=== PATIENT | male | born 2000 | race Hispanic/Latino ===

== ENCOUNTER 2021-02-22 19:08 | Emergency (ER) | payer SELFPAY ==
--- NOTE | 2021-02-22 20:19 | ER ---
Nurse's Notes [facility] Name: Jeffery Jarquin Age: 20 yrs Sex: Male : 2000 Arrival Date: 02/22/2021 Time: 19:13 Bed 25 Private MD: Diagnosis: Injury of conjunctiva and corneal abrasion without foreign body, right eye;Unspecified acute conjunctivitis, bilateral Presentation: 02/22 20:50 Chief complaint: Patient states: R eye pain x 6 hours, reports contact that became lp1 irritating, only able to get out half of contact; reports pain to right eye. Coronavirus screen: Client denies travel out of the [place] in the last 14 days. At this time, the client does not indicate any symptoms associated with coronavirus-19. Ebola Screen: No symptoms or risks identified at this time. Initial Sepsis Screen: Does the patient meet any 2 criteria? No. Patient's initial sepsis screen is negative. Does the patient have a suspected source of infection? No. Patient's initial sepsis screen is negative. Risk Assessment: Do you want to hurt yourself or someone else? Patient reports no desire to harm self or others. Onset of symptoms was February 22, 2021. 20:50 Method Of Arrival: Ambulatory lp1 20:50 Acuity: IWONA 3 lp1 Historical: - Allergies: 20:51 No Known Allergies; lp1 - Home Meds: 20:51 None [Active]; lp1 - PMHx: 20:51 None; lp1 - PSHx: 20:51 None; lp1 - Social history:: Smoking status: Patient denies any tobacco usage or history of. Screenin:51 Abuse screen: Denies threats or abuse. Denies injuries from another. Nutritional lp1 screening: No deficits noted. Tuberculosis screening: No symptoms or risk factors identified. Assessment: 21:00 General: Appears in no apparent distress. uncomfortable, well developed, well bb nourished, Behavior is cooperative. Pain: Complains of pain in left eye. Neuro: Level of Consciousness is awake, alert, obeys commands, Oriented to person, place, time, situation. Cardiovascular: Heart tones S1 S2 present Capillary refill < 3 seconds Patient's skin is warm and dry. Respiratory: Respiratory effort is even, unlabored, Respiratory pattern is regular. GI: No signs and/or symptoms were reported involving the gastrointestinal system. EENT: Eyes are tearing on left eye with scleral erythema. Musculoskeletal: Circulation, motion, and sensation intact. 23:35 Reassessment: Patient is alert, oriented x 3, equal unlabored respirations, skin bb warm/dry/pink. pt and parent verbalized understanding of and agrees to plan of care discharge instructions given pt ambulated with steady gait to exit accompanied by family. Vital Signs: 20:50 BP 146 / 119; Pulse 61; Resp 16; Temp 99.5(TE); Pulse Ox 99% on R/A; Weight 64.86 kg lp1 (R); Height 5 ft. 6 in. (167.64 cm); Pain 10/10; 23:36 Pulse 55; Resp 14 S; Temp 99.4(TE); Pulse Ox 98% on R/A; Pain 0/10; bb 20:50 Body Mass Index 23.08 (64.86 kg, 167.64 cm) lp1 ED Course: 19:13 Patient arrived in ED. ds1 19:59 Patient's name was called from ER lobby. No response. lp1 20:18 Patient's name was called from ER lobby. No response. Unable to locate patient. Will lp1 disposition as left without being seen by a provider. 20:51 Triage completed. lp1 20:52 Patient has correct armband on for positive identification. lp1 21:10 Baltazar Bustamante PA is PHCP. cp 21:10 Alex Kenney MD is Attending Physician. cp 23:12 Tory Gray MD is Referral Physician. cp 23:34 Judith Vivar, FLAKITO is Primary Nurse. bb Administered Medications: 21:30 Drug: Tetracaine Drops 0.5 % 1 drops Route: Ophthalmic; Site: right eye; iw 23:27 Drug: Hydrocodone-Acetaminophen (7.5 mg-325 mg) 1 tabs Route: PO; fu 23:27 Drug: Ibuprofen 800 mg Route: PO; fu 23:27 Drug: Gentamicin Drops 0.3 % 2 drops Route: Ophthalmic; Site: both eyes; fu Outcome: 20:18 Patient left the ED. lp1 23:13 Discharge ordered by . cp 23:36 Instructed on discharge instructions, follow up and referral plans. medication usage, bb Demonstrated understanding of instructions, follow-up care, medications, Prescriptions given X 1. 23:47 Patient left the ED. lp1 Signatures: Clarisa Watson ds1 Judith Vivar RN RN bb Twila Conde RN RN iw Pena, Laura, RN RN lp1 Baltazar Bustamante PA PA cp Umadhay, Felix RN RN fu
[2021-02-22] MEDS ORDERED: TETRACAINE HCL 0.5% 4ML OPTH ONE (21:22)
[2021-02-22] MEDS ORDERED: FLUORESCEIN SODIUM 1 MG/WRAP ONE ×2 (21:23→23:04)
--- NOTE | 2021-02-22 23:14 | EDPHYS ---
Physician Documentation [facility] Name: Jeffery Jarquin Age: 20 yrs Sex: Male : 2000 Arrival Date: 02/22/2021 Time: 19:13 Bed 25 Private MD: ED Physician Alex Kenney HPI: 02/22 21:35 This 20 yrs old Male presents to ER via Ambulatory with complaints of Eye cp Pain, Foreign Body In Eye. 21:35 The patient is experiencing pain, redness, foreign body sensation of right eye. Onset: cp The symptoms/episode began/occurred today. Duration: the symptoms are continuous. Patient wears glasses, wears soft contacts. 21:35 Presents to emergency department with complaints of pain to bilateral eyes. Patient cp reports pain started earlier today after wearing his soft contact lenses. Patient reports he was able to remove the contact lenses from both eyes but continues to have pain discomfort now redness to both eyes with the pain being worse in the right. Patient reports he feels like there is something in his right eye. Patient complains of blurry vision. Patient denies any injury to the eyes.. Historical: - Allergies: 20:51 No Known Allergies; lp1 - Home Meds: 20:51 None [Active]; lp1 - PMHx: 20:51 None; lp1 - PSHx: 20:51 None; lp1 - Social history:: Smoking status: Patient denies any tobacco usage or history of. ROS: 21:40 Eyes: Positive for pain, redness, of the left eye and right eye, foreign body sensation cp of right eye. 21:40 Constitutional: Negative for body aches, chills, fever. cp 21:40 Respiratory: Negative for cough, shortness of breath. 21:40 Skin: Negative for rash. 21:40 Neuro: Negative for altered mental status, headache, weakness. 21:40 All other systems are negative. Exam: 21:50 Constitutional: The patient appears in no acute distress, alert, awake, non-toxic, well cp developed, well nourished, uncomfortable. 21:50 Head/Face: Normocephalic, atraumatic. cp 21:50 Eyes: Periorbital structures: appear normal, Pupils: equal, round, and reactive to light and accomodation, Extraocular movements: intact throughout, Conjunctiva: injected, bilaterally, Corneas: abrasion, that is large, on the right, central cornea, foreign body, is not appreciated, a fluorescein strip employed to appreciate the findings, Sclera: no appreciated abnormality, Lids and lashes: appear normal, bilaterally, Visual bledsoe: are intact. 21:50 ENT: External ear(s): are unremarkable, Ear canal(s): are normal, clear, TM's: dullness, bilaterally, Nose: is normal, Mouth: Lips: moist, Oral mucosa: moist, Posterior pharynx: Airway: no evidence of obstruction, patent. 21:50 Neck: Lymph nodes: no appreciated lymphadenopathy. 21:50 Chest/axilla: Inspection: normal. 21:50 Cardiovascular: Rate: normal. 21:50 Respiratory: the patient does not display signs of respiratory distress, Respirations: normal. 21:50 Skin: no rash present. Vital Signs: 20:50 BP 146 / 119; Pulse 61; Resp 16; Temp 99.5(TE); Pulse Ox 99% on R/A; Weight 64.86 kg lp1 (R); Height 5 ft. 6 in. (167.64 cm); Pain 10/10; 23:36 Pulse 55; Resp 14 S; Temp 99.4(TE); Pulse Ox 98% on R/A; Pain 0/10; bb 20:50 Body Mass Index 23.08 (64.86 kg, 167.64 cm) lp1 MDM: 20:18 Medical screening is not applicable. lp1 21:25 Patient medically screened. cp 22:00 Differential diagnosis: Corneal abrasion of right eye. Corneal ulcer of right eye. cp Foreign body in right eye. Acute iritis of both eyes. Infectious conjunctivitis in both eyes. 23:13 Data reviewed: vital signs, nurses notes, and as a result, I will discharge patient. cp 23:13 Counseling: I had a detailed discussion with the patient and/or guardian regarding: the cp historical points, exam findings, and any diagnostic results supporting the discharge/admit diagnosis, the need for outpatient follow up, an opthalmologist, to return to the emergency department if symptoms worsen or persist or if there are any questions or concerns that arise at home. Response to treatment: the patient's symptoms have markedly improved after treatment, and as a result, I will discharge patient. 02/22 21:29 Order name: Eye Tray; Complete Time: 21:30 cp 02/22 21:29 Order name: Fluoresene Opth strip; Complete Time: 21:30 cp 02/22 21:29 Order name: Visual Acuity cp 02/22 21:29 Order name: Fluoresene Opth strip; Complete Time: 21:31 cp Administered Medications: 21:30 Drug: Tetracaine Drops 0.5 % 1 drops Route: Ophthalmic; Site: right eye; iw 23:27 Drug: Hydrocodone-Acetaminophen (7.5 mg-325 mg) 1 tabs Route: PO; fu 23:27 Drug: Ibuprofen 800 mg Route: PO; fu 23: Drug: Gentamicin Drops 0.3 % 2 drops Route: Ophthalmic; Site: both eyes; fu Disposition: 23:20 Chart complete. cp Disposition Summary: 02/22/21 23:13 Discharge Ordered Location: Home cp Problem: new cp Symptoms: have improved cp Condition: Stable cp Diagnosis - Injury of conjunctiva and corneal abrasion without foreign body, right eye cp - Unspecified acute conjunctivitis, bilateral cp Followup: cp - With: Tory Gray MD - When: 1 - 2 days - Reason: Recheck today's complaints Discharge Instructions: - Discharge Summary Sheet cp - Corneal Abrasion cp - Bacterial Conjunctivitis, Adult cp - How to Use Eye Drops and Eye Ointments cp Forms: - Medication Reconciliation Form cp - Thank You Letter cp - Antibiotic Education cp - Prescription Opioid Use cp Prescriptions: - Vigamox 0.5 % Ophthalmic Drops - instill 1 drop by OPHTHALMIC route every 8 hours for 7 days instill drops as cp directed into each eye; 10 milliliter; Refills: 0, Product Selection Permitted Addendum: 02/24/2021 04:34 Co-signature as Attending Physician, Alex Kenney MD. [facility] Signatures: Twila Conde RN RN Rosamaria Gordillo RN RN 1 Baltazar Bustamante PA PA cp Jairo Mistry RN RN fu Holmes, Maurice, MD MD [id number] Corrections: (The following items were deleted from the chart) 02/22 20:49 20:18 Before Triage lp1 zb 20:49 20:18 unknown lp1 zb
[2021-02-22] MEDS ORDERED: HYDROCODONE/APAP 7.5/325 MG TAB ONE (23:43)
[2021-02-22] MEDS ORDERED: IBUPROFEN 400 MG TAB ONE (23:43)
[2021-02-22] MEDS ORDERED: GENTAMICIN 0.3% OPTH DROP 5ML ONE (23:47)
[2021-02-22 23:53] VITALS: BP 146/119
[2021-02-22 23:57] VITALS: TEMP 99.4; O2SAT 98
== END 2021-02-22 23:47 | disposition home or self-care (01) ==
LOC: ER 19:08
DX: S05.01XA Injury of conjunctiva and corneal abrasion without foreign body, right eye, initial encounter (principal); H10.9 Unspecified conjunctivitis
CPT/HCPCS: 99283

== ENCOUNTER 2024-08-30 19:15 | Emergency (ER) | payer SELFPAY ==
[2024-08-30 20:11] LABS: Specific Gravity 1.018 (1.005-1.030); Sqamous Epithelial <5 /HPF (None Seen); Urine Bacteria None Seen /HPF (<20); Urine Bilirubin NEGATIVE (Negative); Urine Blood Trace (Negative); Urine Clarity Clear (Clear); Urine Color Yellow (Yellow); Urine Crystals Unidentified Few /HPF (None Seen); Urine Culture Reflex Order NOT NEEDED; Urine Glucose NEGATIVE (Negative); Urine Ketones TRACE (Negative); Urine Microscopic Reflex YN ORDER UMIC; Urine Nitrite NEGATIVE (Negative); Urine Protein NEGATIVE (Negative); Urine Urobilinogen Normal (Normal); Urine WBC <5 /HPF (<5); Urine pH 6.5 (5.0-7.0)
[2024-08-30 20:15] LABS: Absolute Basophils 0.1 K/uL (0-0.5); Absolute Lymphocytes (CBC) 1.4 K/uL (0.7-4.9); Absolute Monocytes 2.2 K/uL (0.1-1.3); Absolute Neutrophil 12.5 K/uL (1.8-8.0); Basophils % 0.3 % (0-1.3); Hematocrit 41.2 % (39.6-49.0); Hemoglobin 14.3 g/dL (13.6-17.9); Lymphocytes % 8.5 % (15.3-44.8); MCH 30.1 pg (27.0-35.0); MCHC 34.8 g/dL (32.0-36.0); MCV 86.6 fL (80-100); MPV 7.7 fL (7.6-11.3); Monocytes % 13.7 % (3.3-12.3); Neutrophils % 77.5 % (41.7-73.7); Platelets 332 thou/uL (152-406); RBC Red Blood Cell Count 4.76 M/uL (4.33-5.43); Red Cell Distribution Width 13.2 % (12.1-15.2)
--- NOTE | 2024-08-30 20:33 | RAD REPORT ---
EXAMINATION: ULTRASOUND DUPLEX OF SCROTUM AND TESTICLES CLINICAL INDICATION: Male, 24 years, Testicular Pain TECHNIQUE: Duplex scan of the scrotal contents was performed including real-time color and spectral D oppler ultrasonography with arterial inflow and venous outflow. COMPARISON: No prior exam. FINDINGS: RIGHT TESTICLE AND EPIDIDYMIS: The right testicle is normal in size, measuring 4.3 x 3.0 x 1.9 cm. Fairly well-circumscribed complex solid mass near the lower pole with some areas of calcification, me asuring 1.8 x 1.7 x 1.7 cm. Internal vascularity noted. Normal, homogeneous echotexture otherwise. The right epididymis is normal. Color Doppler flow in the right testicle is normal. Normal arterial and venous spectral Doppler waveforms are identified. No hydrocele. No varicocele. LEFT TESTICLE AND EPIDIDYMIS: The left testicle is normal in size, measuring 4.6 x 2.2 x 2.9 cm. Normal, homogeneous echotexture with no focal lesion seen. The left epididymis is normal. Color Doppler flow in the left testicle is normal. Normal arterial and venous spectral Doppler waveforms are identified. No hydrocele. No varicocele. INGUINAL CANAL: No hernia. ADDITIONAL FINDINGS: None. 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 No abnormalities of the epididymes or left testicle.
[2024-08-30 20:37] LABS: Albumin 3.3 g/dL (3.4-5.0); Albumin/Globulin Ratio 0.6 (1.1-1.8); Anion Gap 10.6 mEq/L (5.0-15.0); Bilirubin Total 1.3 mg/dL (0.2-1.0); Globulin 5.4 g/dL (2.3-3.5); Potassium 3.6 mEq/L (3.5-5.1); Protein, Total 8.7 g/dL (6.4-8.2)
[2024-08-30] MEDS ORDERED: MORPHINE 4 MG/ML SYR ONE (21:06)
[2024-08-30] MEDS ORDERED: NA CHLORIDE 0.9% 1,000 ML ONE (21:06)
[2024-08-30] MEDS ORDERED: ONDANSETRON 4 MG/2 ML VIAL ONE (21:06)
[2024-08-30] MEDS ORDERED: KETOROLAC 30 MG/ML INJ ONE (21:06)
--- NOTE | 2024-08-30 21:13 | RAD REPORT ---
EXAMINATION: CT Abdomen Pelvis W Contrast CLINICAL INDICATION: Male, 24 years old. Abd pain;RLQ pain TECHNIQUE: CT abdomen and pelvis was performed, after the administration of IV contrast, as per [facility] protocol. Axial, sagittal and coronal reconstructions were obtained. One or more of the following dose reduction techniques were used: Automated exposure control, adjustment of the mA and k V according to patient size, and iterative reconstruction. Unless otherwise specified, incidental findings do not require dedicated imaging follow-up. COMPARISON: No prior exam. FINDINGS: LOWER CHEST: The visualized lung bases are clear. LIVER: Normal in size and contour. No focal lesion. BILIARY SYSTEM: No suspicious abnormalities. SPLEEN: Normal size. No focal lesion. PANCREAS: No mass, ductal dilation, or carlos-pancreatic fluid. ADRENALS: Normal; no mass. KIDNEYS: Normal size and contour. No hydronephrosis. URINARY BLADDER: Unremarkable. GASTROINTESTINAL TRACT: No evidence of free air, significant intra-abdominal free fluid, bowel obstru ction or abscess. APPENDIX: Normal appendix. 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 Largest on the right is precaval, present further caudally, juan josé uring 4.7 x 4.3 cm in greatest axial dimensions. Nonlocalized edema within the retroperitoneum extending along the right pelvic sidewall, may relate to obstruction of the hepatic trunks. Posterior mediastinal lymphadenopathy with the largest node in the right para-aortic region measuring 2.4 x 1.8 cm. MUSCULOSKELETAL: No acute or suspicious osseous abnormality. ADDITIONAL FINDINGS: None. IMPRESSION: Extensive lymphadenopathy in the retroperitoneum and posterior mediastinum, concerning for metastatic disease, given the findings of the right testicular mass on scrotal ultrasound performed concomitantly.
--- NOTE | 2024-08-30 23:16 | EDPHYS ---
Physician Documentation [facility] Name: Jeffery Jarquin Age: 24 yrs Sex: Male : 2000 Arrival Date: 08/30/2024 Time: 19:15 Bed 6 Private MD: ED Physician Edy Drake HPI: 08/30 23:15 This 24 yrs old Male presents to ER via Ambulatory with complaints of Pelvic dr5 Pain, LUMP ON RT TESTICLE. 23:15 Onset: The symptoms/episode began/occurred 1 month(s) ago. Patient is a 24-year-old dr5 male with no past medical history coming in with mass to right testicle that he noticed 1 month ago. Patient reports that he went to a doctor today and was referred to ER for ultrasound for further management. Patient denies fever, nausea, vomiting, diarrhea, chest pain, shortness of breath.. Historical: - Allergies: 19:27 No Known Allergies; bm8 - Home Meds: 19:27 None [Active]; bm8 - PMHx: 19:27 None; bm8 - PSHx: 19:27 None; bm8 - Immunization history:: Adult Immunizations up to date. - Infectious Disease History:: Denies. - Social history:: Smoking status: Patient denies any tobacco usage or history of. ROS: 23:15 Constitutional: as per hpi dr5 Exam: 23:15 Constitutional: This is a well developed, well nourished patient who is awake, alert, dr5 and in no acute distress. Head/Face: Normocephalic, atraumatic. Eyes: Pupils equal round and reactive to light, extra-ocular motions intact. Lids and lashes normal. Conjunctiva and sclera are non-icteric and not injected. Cornea within normal limits. Periorbital areas with no swelling, redness, or edema. Neck: Trachea midline, no thyromegaly or masses palpated, and no cervical lymphadenopathy. Supple, full range of motion without nuchal rigidity, or vertebral point tenderness. No Meningismus. Chest/axilla: Normal chest wall appearance and motion. Nontender with no deformity. No lesions are appreciated. Cardiovascular: Regular rate and rhythm with a normal S1 and S2. Normal PMI, no JVD. No pulse deficits. Respiratory: Lungs have equal breath sounds bilaterally, clear to auscultation. No rales, rhonchi or wheezes noted. No increased work of breathing, no retractions or nasal flaring. Back: No spinal tenderness. No costovertebral tenderness. Full range of motion. Skin: Warm, dry with normal turgor. Normal color with no rashes, no lesions, and no evidence of cellulitis. MS/ Extremity: Pulses equal, no cyanosis. Neurovascular intact. Full, normal range of motion. Neuro: Awake and alert, GCS 15, oriented to person, place, time, and situation. Cranial nerves II-XII grossly intact. Motor strength 5/5 in all extremities. Sensory grossly intact. Cerebellar exam normal. Normal gait. 23:15 : CVA tenderness, is absent, Male external genitalia: Patient is not circumisioned. cremasteric reflex present right, present left, lesion, painful, tenderness, of the right testicle is noted, that is moderate, Mass noted to right testicle at the lower area. Tender to palpation., Bladder: Rectal exam: Sexual behavior: FLAKITO Cordova at bedside during exam, Vital Signs: 19:25 BP 141 / 87; Pulse 116; Resp 18; Temp 99; Pulse Ox 100% ; Weight 68.04 kg; Height 5 ft. bm8 6 in. ; Pain 3/10; 21:31 BP 143 / 77; Pulse 112; Resp 17; Pulse Ox 100% ; cp4 23:07 BP 140 / 70; Pulse 114; Resp 17; Pulse Ox 99% ; cp4 23:20 BP 128 / 76; Pulse 99; Resp 17; Temp 99; Pulse Ox 100% ; Pain 3/10; 8 08/31 00:33 BP 132 / 86; Pulse 98; Resp 8; Temp 99; Pulse Ox 99% ; Pain 3/10; 8 08/30 19:25 Body Mass Index 24.21 (68.04 kg, 167.64 cm) 8 08/30 19:25 Pain Scale: Adult bm8 23:20 Pain Scale: Adult bm8 08/31 00:33 Pain Scale: Adult bm8 Janes Coma Score: 08/30 23:20 Eye Response: spontaneous(4). Motor Response: obeys commands(6). Verbal Response: bm8 oriented(5). Total: 15. 08/31 00:33 Eye Response: spontaneous(4). Motor Response: obeys commands(6). Verbal Response: bm8 oriented(5). Total: 15. MDM: 08/30 19:27 Medical Screening Exam initiated dr5 23:15 Differential diagnosis: viral Infection, Testicular torsion, testicular cancer, dr5 appendicitis. Data reviewed: vital signs, nurses notes, lab test result(s), radiologic studies, CT scan. Consideration of Admission/Observation Patient was admitted/placed on observation. Management of patient was discussed with the following: Hospitalist: Dr. Lindsay at [facility]. Chemical Worker: Dr. Pompa (Urologist). Care significantly affected by the following Social Determinants of Health: Poor access to healthcare and/or lack of insurance, Poor access to transportation, Unemployment, Problems related to employment. Counseling: I had a detailed discussion with the patient and/or guardian regarding the historical points, exam findings, and any diagnostic results supporting the discharge/admit diagnosis, the presence of at least one elevated blood pressure reading (>120/80) during this emergency department visit, lab results, radiology results, the need to transfer to another facility, for higher level of care, [facility] does not immediately have the required specialist, Do not have immediate urology service.. Medication response: morphine markedly relieved the patient's pain. Symptoms have improved, Toradol markedly relieved the patient's pain. Response to treatment: the patient's symptoms have markedly improved after treatment. ED course: Given the patient ultrasound results and CT scan will transfer to [facility] for urology service and concerns for testicular cancer with possible metastasis. Explained all results and scans to patient. Patient is agreeable to transfer.. 08/30 19:19 Order name: CBC with Diff; Complete Time: 20:47 dr5 08/30 19:19 Order name: CMP; Complete Time: 20:47 dr5 08/30 19:27 Order name: Urinalysis w/ reflexes; Complete Time: 20:15 dr5 08/30 19:19 Order name: US Scrotum Testicles; Complete Time: 20:47 dr5 08/30 19:27 Order name: CT Abd/Pelvis - IV Contrast Only; Complete Time: 21:17 dr5 Administered Medications: 21:13 Drug: Ketorolac IVP 15 mg IVP once Route: IVP; Site: right antecubital; cm10 21:53 Follow up: Response: No adverse reaction cm10 21:13 Drug: morphine IVP or IV 4 mg IVP once over 4 mins Route: IVP; Infused Over: 4 mins; cm10 Site: right antecubital; 21:53 Follow up: Response: No adverse reaction cm10 21:13 Drug: Ondansetron IVP 4 mg IVP once; over 2 minutes Route: IVP; Site: right antecubital;cm10 21:53 Follow up: Response: No adverse reaction cm10 21:13 Drug: NS 0.9% IV 1000 ml IV at 1000 ml once; to be given as a bolus over 60 minutes cm10 Route: IV; Rate: 1000 ml; Site: right antecubital; 21:52 Follow up: Response: No adverse reaction; IV Status: Completed infusion; IV Intake: cm10 1000ml Disposition: 08/31 08:58 Co-signature as Attending Physician, Edy Drake MD I reviewed the patient's care rt provided by the Advanced Practice Provider and agree with the diagnosis and treatment plan. Disposition Summary: 08/30/24 23:15 Transfer Ordered Notes: Transfer Location: [facility] dr5 Reason: Higher level of care dr5 Condition: Stable dr5 Problem: new dr5 Symptoms: are unchanged dr5 Accepting Physician: Dr. Lindsay - Hospitalist(08/31/24 00:35) bm8 Diagnosis - Right testicular pain dr5 Forms: - Medication Reconciliation Form dr5 - SBAR form dr5 Signatures: Dispatcher [employer] EDEdy Moreland MD MD rt Tasha Gallegos RN RN cm10 John Vazquez RN RN bm8 Kwame Guerrero, PEDIATRIC NURSE-C PEDIATRIC NURSE-Cdr5 Corrections: (The following items were deleted from the chart) 08/30 19: 19:27 Abdomen Pelvis W Con+CT.RAD.BRZ ordered. EDMS EDMS 19:27 Urinalysis+U.LAB.BRZ ordered. EDMS EDMS 08/31 00:35 08/30 23:15 Dr. Lindsay - Hospitalist dr5 bm8
--- NOTE | 2024-08-30 23:16 | ER ---
Nurse's Notes [facility] Name: Jeffery Jarquin Age: 24 yrs Sex: Male : 2000 Arrival Date: 08/30/2024 Time: 19:15 Bed 6 Private MD: Diagnosis: Right testicular pain Presentation: 08/30 19:25 Chief complaint: Patient states: pt reports lump on right testicle hip pain and bladder bm8 pain that started five days ago. Coronavirus screen: At this time, the client does not indicate any symptoms associated with coronavirus-19. Ebola Screen: No symptoms or risks identified at this time. Initial Sepsis Screen: Does the patient meet any 2 criteria? No. Patient's initial sepsis screen is negative. Does the patient have a suspected source of infection? No. Patient's initial sepsis screen is negative. Risk Assessment: Do you want to hurt yourself or someone else? Patient reports no desire to harm self or others. Onset of symptoms was August 25, 2024. 19:25 Method Of Arrival: Ambulatory 8 19:25 Acuity: IWONA 3 bm8 Triage Assessment: 19:27 General: Appears in no apparent distress. comfortable, Behavior is cooperative, bm8 appropriate for age, anxious. Pain: Complains of pain in groin, right femoral area, suprapubic area, right inguinal area and right iliac crest Pain currently is 3 out of 10 on a pain scale. EENT: No deficits noted. No signs and/or symptoms were reported regarding the EENT system. Neuro: No deficits noted. Level of Consciousness is awake, alert, obeys commands, Oriented to person, place, time, situation, Appropriate for age. Cardiovascular: No deficits noted. Capillary refill < 3 seconds in bilateral fingers. Respiratory: Airway is patent Respiratory effort is even, unlabored, Respiratory pattern is regular, symmetrical. GI: No signs and/or symptoms were reported involving the gastrointestinal system. : Reports pain testicle, bladder and right hip. Derm: No signs and/or symptoms reported regarding the dermatologic system. Musculoskeletal: Reports pain in right inguinal area and right iliac crest. Historical: - Allergies: 19:27 No Known Allergies; bm8 - Home Meds: 19:27 None [Active]; bm8 - PMHx: 19:27 None; bm8 - PSHx: 19:27 None; bm8 - Immunization history:: Adult Immunizations up to date. - Infectious Disease History:: Denies. - Social history:: Smoking status: Patient denies any tobacco usage or history of. Screenin:56 [facility] ED Fall Risk Assessment (Adult) History of falling in the last 3 months, cm10 including since admission No falls in past 3 months (0 pts) Confusion or Disorientation No (0 pts) Intoxicated or Sedated No (0 pts) Impaired Gait No (0 pts) Mobility Assist Device Used No (0 pt) Altered Elimination No (0 pt) Score/Fall Risk Level 0 - 2 = Low Risk Oriented to surroundings, Educated pt \T\ family on fall prevention, incl call for assistance when getting out of bed, Hourly rounding (assess needs \T\ fall precautionary measures) done. Abuse screen: Denies threats or abuse. Denies injuries from another. Nutritional screening: No deficits noted. Tuberculosis screening: No symptoms or risk factors identified. Assessment: 21:00 General: Appears in no apparent distress. comfortable, Behavior is calm, cooperative. cm10 Pain: Complains of pain in right testicle Pain radiates to right lower quadrant Pain currently is 4 out of 10 on a pain scale. Neuro: No deficits noted. Level of Consciousness is awake, alert, obeys commands, Oriented to person, place, time, situation, Appropriate for age. Respiratory: No deficits noted. Airway is patent Respiratory effort is even, unlabored, Respiratory pattern is regular, symmetrical. : Reports pain in right in suprapubic area lower quadrant(s) testicle, since 4-5 days ago Lump on right testicle onset 1 month ago. 23:20 Reassessment: Patient appears in no apparent distress at this time. Patient and/or bm8 family updated on plan of care and expected duration. Pain level reassessed. Patient is alert, oriented x 3, equal unlabored respirations, skin warm/dry/pink. Patient states feeling better. Pain: Complains of pain in right testicle Pain currently is 3 out of 10 on a pain scale. 23:22 Reassessment: ATTEMPTED TO CALL REPORT AND WAS ASKED TO CALL BACK IN 10 MINS BECAUSE 8 NURSE WAS OFF THE FLOOR AT THIS TIME. 23:45 Reassessment: REPORT TO FLAKITO FELIZ AT [facility]. bm8 Vital Signs: 19:25 BP 141 / 87; Pulse 116; Resp 18; Temp 99; Pulse Ox 100% ; Weight 68.04 kg; Height 5 ft. bm8 6 in. ; Pain 3/10; 21:31 BP 143 / 77; Pulse 112; Resp 17; Pulse Ox 100% ; cp4 23:07 BP 140 / 70; Pulse 114; Resp 17; Pulse Ox 99% ; cp4 23:20 BP 128 / 76; Pulse 99; Resp 17; Temp 99; Pulse Ox 100% ; Pain 3/10; bm8 08/31 00:33 BP 132 / 86; Pulse 98; Resp 8; Temp 99; Pulse Ox 99% ; Pain 3/10; bm8 08/30 19:25 Body Mass Index 24.21 (68.04 kg, 167.64 cm) 8 08/30 19:25 Pain Scale: Adult bm8 23:20 Pain Scale: Adult bm8 08/31 00:33 Pain Scale: Adult bm8 Janes Coma Score: 08/30 23:20 Eye Response: spontaneous(4). Motor Response: obeys commands(6). Verbal Response: bm8 oriented(5). Total: 15. 08/31 00:33 Eye Response: spontaneous(4). Motor Response: obeys commands(6). Verbal Response: bm8 oriented(5). Total: 15. ED Course: 08/30 19:18 Patient arrived in ED. jj6 19:19 Kwame Guerre[facility] F[facility]-C [facility]. dr5 19:19 Edy Drake MD is Attending Physician. dr5 19:27 Triage completed. bm8 19:27 Arm band placed on left wrist. bm8 19:29 Tasha Gallegos, RN is Primary Nurse. cm10 20:03 US Scrotum Testicles In Process Unspecified. EDMS 20:04 Urinalysis w/ reflexes Sent. cp4 20:04 Urine collected: clean catch specimen, joaquin colored. cp4 20:09 CMP Sent. mm11 20:09 CBC with Diff Sent. mm11 20:10 Inserted saline lock: 22 gauge in right antecubital area, using aseptic technique. mm11 Blood collected. Flushed with 10 mL NS. 20:15 CT Abd/Pelvis - IV Contrast Only In Process Unspecified. EDMS 21:45 Assisted provider with: Testicular Exam. cm10 21:56 Patient has correct armband on for positive identification. Placed in gown. Bed in low cm10 position. Call light in reach. Side rails up X2. Provided Education on: ER process and procedures.. 22:13 Report given to FLAKITO Lopez. cm10 23:19 John Vazquez, RN is Primary Nurse. bm8 23:20 Door closed. Noise minimized. Warm blanket given. Pillow given. Verbal reassurance bm8 given. Head of bed elevated. 23:20 Patient maintains SpO2 saturation greater than 95% on room air. bm8 08/31 00:33 Patient transferred, IV remains in place. bm8 Administered Medications: 08/30 21:13 Drug: Ketorolac IVP 15 mg IVP once Route: IVP; Site: right antecubital; cm10 21:53 Follow up: Response: No adverse reaction cm10 21:13 Drug: morphine IVP or IV 4 mg IVP once over 4 mins Route: IVP; Infused Over: 4 mins; cm10 Site: right antecubital; 21:53 Follow up: Response: No adverse reaction cm10 21:13 Drug: Ondansetron IVP 4 mg IVP once; over 2 minutes Route: IVP; Site: right antecubital;cm10 21:53 Follow up: Response: No adverse reaction cm10 21:13 Drug: NS 0.9% IV 1000 ml IV at 1000 ml once; to be given as a bolus over 60 minutes cm10 Route: IV; Rate: 1000 ml; Site: right antecubital; 21:52 Follow up: Response: No adverse reaction; IV Status: Completed infusion; IV Intake: cm10 1000ml Medication: 21:56 VIS not applicable for this client. cm10 Intake: 21:52 IV: 1000ml; Total: 1000ml. cm10 Outcome: 23:15 ER care complete, transfer ordered by . dr5 08/31 00:33 [facility]red by ground [facility] [place] [facility] [facility] [place] Condition: stable Instructed on follow up and referral plans. the need for transfer, safety practices, Demonstrated understanding of instructions, follow-up care, 00:35 Patient left the ED. bm8 Signatures: Dispatcher [employer] EDMS Sydni [id number] Tasha Gallegos RN RN cm10 Ceci aMx cp4 John Vazquez, RN RN bm8 Kwame Guerrero, LIQUOR BRIDGE OPERATOR HELPER-C LIQUOR BRIDGE OPERATOR HELPER-Cdr5 farida mueller mm11
[2024-08-31 12:46] VITALS: TEMP 99
[2024-08-31 13:02] VITALS: BP 132/86; O2SAT 99
== END 2024-08-31 00:35 | disposition short-term general hospital (02) ==
LOC: ER 19:15
DX: N50.811 Right testicular pain (principal)
CPT/HCPCS: 36415; 74177; 76870; 80053; 81001; 85025; 96361; 96374; 96375; 99285; J2405; J7030; Q9967

== ENCOUNTER 2024-09-08 14:23 | Emergency (ER) | payer SELFPAY ==
--- NOTE | 2024-09-08 14:52 | ER ---
Nurse's Notes [facility] Name: Jeffery Jarquin Age: 24 yrs Sex: Male : 2000 Arrival Date: 09/08/2024 Time: 14:23 Bed 20 Private MD: Diagnosis: Encounter for wound evaluation Presentation: 09/08 14:34 Chief complaint: Patient states: Here to have wound checked to right groin. Pt had cm10 right testicle removed last week and the wound opened up. Pt reports having slight bleeding to the area. Coronavirus screen: Client denies travel out of the [place] in the last 14 days. Ebola Screen: Patient denies travel to an Ebola-affected area in the 21 days before illness onset. Initial Sepsis Screen: Does the patient meet any 2 criteria? No. Patient's initial sepsis screen is negative. Does the patient have a suspected source of infection? No. Patient's initial sepsis screen is negative. Risk Assessment: Do you want to hurt yourself or someone else? Patient reports no desire to harm self or others. Onset of symptoms was September 08, 2024. 14:34 Method Of Arrival: Ambulatory cm10 14:34 Acuity: IWONA 4 cm10 Triage Assessment: 14:38 General: Appears in no apparent distress. uncomfortable, Behavior is calm, cooperative. cm10 Pain: Complains of pain in back and pelvis Pain currently is 7 out of 10 on a pain scale. Neuro: No deficits noted. Level of Consciousness is awake, alert, obeys commands, Oriented to person, place, time, situation, Appropriate for age. Respiratory: No deficits noted. Airway is patent Respiratory effort is even, unlabored, Respiratory pattern is regular, symmetrical. Derm: Wound noted right lower quadrant Wound is Surgical wound. Historical: - Allergies: 14:37 No Known Allergies; cm10 - PMHx: 14:37 Testicular Cancer; cm10 - PSHx: 14:37 Right testicle removed; cm10 - Immunization history:: Adult Immunizations up to date. - Infectious Disease History:: Denies. - Social history:: Smoking status: Patient denies any tobacco usage or history of. Patient/guardian denies using alcohol, street drugs. Screenin:22 [facility] ED Fall Risk Assessment (Adult) History of falling in the last 3 months, me1 including since admission No falls in past 3 months (0 pts) Confusion or Disorientation No (0 pts) Intoxicated or Sedated No (0 pts) Impaired Gait No (0 pts) Mobility Assist Device Used No (0 pt) Altered Elimination No (0 pt) Score/Fall Risk Level 0 - 2 = Low Risk Maintained a safe environment, Provided non-skid footwear, Hourly rounding (assess needs \T\ fall precautionary measures) done. Abuse screen: Denies threats or abuse. Nutritional screening: No deficits noted. Tuberculosis screening: No symptoms or risk factors identified. Assessment: 15:22 General: Appears in no apparent distress. well groomed, well developed, well nourished, me1 Behavior is calm, cooperative, appropriate for age, Reports Here to have wound checked to right groin. Pt had right testicle removed last week and the wound opened up. Pt reports having slight bleeding to the area. Pain: Complains of pain in abdomen and right lower quadrant and pelvis and back Pain does not radiate. Pain currently is 8 out of 10 on a pain scale. Quality of pain is described as aching, Pain began gradually, Is continuous. Neuro: Level of Consciousness is awake, alert, obeys commands, Oriented to person, place, time, situation, Appropriate for age. Cardiovascular: Patient's skin is warm and dry. Respiratory: Airway is patent Respiratory effort is even, unlabored, Respiratory pattern is regular, symmetrical. GI: No signs and/or symptoms were reported involving the gastrointestinal system. : Reports pain in right lower quadrant(s) in lower back. EENT: No signs and/or symptoms were reported regarding the EENT system. Derm: Skin is healthy with good turgor, Skin is pink, warm \T\ dry. Wound noted right lower quadrant Wound is surgical incision with glue. Musculoskeletal: No signs and/or symptoms reported regarding the musculoskeletal system. Vital Signs: 14:34 BP 144 / 88; Pulse 85; Resp 15; Temp 97.9(O); Pulse Ox 100% on R/A; Weight 66.22 kg; cm10 Height 5 ft. 6 in. ; Pain 7/10; 15:00 BP 114 / 69; Pulse 56; Resp 15; Pulse Ox 99% ; me1 15:25 Pain 5/10; me1 15:25 Pain 5/10; me1 14:34 Body Mass Index 23.56 (66.22 kg, 167.64 cm) cm10 14:34 Pain Scale: Adult cm10 15:25 Pain Scale: Adult me1 15:25 Pain Scale: Adult me1 ED Course: 14:26 Patient arrived in ED. mr 14:27 Yossi Kim MD is Attending Physician. ec2 14:37 Triage completed. cm10 14:38 Arm band placed on left wrist. Patient placed in an exam room, on a stretcher. cm10 14:50 Ashanti Larson, FLAKITO is Primary Nurse. me1 15:22 Patient has correct armband on for positive identification. Bed in low position. Call me1 light in reach. Side rails up X 1. Provided Education on: POC. Verbalized understanding.. Client placed on continuous cardiac and pulse oximetry monitoring. NIBP monitoring applied. Pulse ox on. NIBP on. 15:22 No provider procedures requiring assistance completed. Patient did not have IV access me1 during this emergency room visit. 15:25 Wound care: to surgical incision located on right lower quadrant was cleaned with va1 Hibiclens, dressed with non adherent, gauze and tape, Patient tolerated well. Administered Medications: 15:16 Drug: morphine IM 4 mg IM once Route: IM; Site: right deltoid; me1 15:25 Follow up: Pain 5/10 Adult; Response: No adverse reaction; Pain is decreased me1 15:16 Drug: Ketorolac IM 30 mg IM once Route: IM; Site: left deltoid; me1 15:25 Follow up: Pain 5/10 Adult; Response: No adverse reaction; Pain is decreased me1 Medication: 15:22 VIS not applicable for this client. me1 Outcome: 14:51 Discharge ordered by . ec2 15:33 Discharged to home ambulatory, with friend, me1 15:33 Condition: stable 15:33 Discharge instructions given to patient, Instructed on discharge instructions, follow up and referral plans. medication usage, Demonstrated understanding of instructions, follow-up care, medications, Prescriptions given X 1, 15:34 Patient left the ED. me1 Signatures: Kimberly Ruiz, Reg Reg mr GallegosDeonTasha, RN RN cm10 Ashanti Larson, FLAKITO RN me1 Yossi Kim MD MD ec2 Corrections: (The following items were deleted from the chart) 15:22 14:34 Chief complaint: Patient states: Here to have wound checked to right groin. Pt me1 had right testicle removed last week and the wound opened up. Pt reports having slight bleeding to the area. cm10
--- NOTE | 2024-09-08 14:52 | EDPHYS ---
Physician Documentation [facility] Name: Jeffery Jarquin Age: 24 yrs Sex: Male : 2000 Arrival Date: 09/08/2024 Time: 14:23 Bed 20 Private MD: ED Physician Yossi Kim HPI: 09/08 14:38 This 24 yrs old Male presents to ER via Ambulatory with complaints of Wound ec2 Check. 14:38 Patient arrives today for evaluation of his groin wound. States that he recently was ec2 diagnosed with testicular cancer, had a recent surgery. States that he is having scant amount of bleeding from the wound and wanted to be evaluated. Also reports he has some general abdominal pain from his metastatic lesions. States he had recent imaging.. Historical: - Allergies: 14:37 No Known Allergies; cm10 - PMHx: 14:37 Testicular Cancer; cm10 - PSHx: 14:37 Right testicle removed; cm10 - Immunization history:: Adult Immunizations up to date. - Infectious Disease History:: Denies. - Social history:: Smoking status: Patient denies any tobacco usage or history of. Patient/guardian denies using alcohol, street drugs. ROS: 14:40 Constitutional: as per hpi ec2 Exam: 14:40 Constitutional: GEN: NAD Head: atraumatic Eyes: EOMI Ears: External ears are ec2 normal. CV: regular rate LUNGS: no respiratory distress ABD: non-distended SKIN: Right groin with well-healing incision scant amount of blood noted on the most medial portion, no significant dehiscence appreciated, no surrounding erythema, no discharge noted. MSK: no evidence of trauma Vital Signs: 14:34 BP 144 / 88; Pulse 85; Resp 15; Temp 97.9(O); Pulse Ox 100% on R/A; Weight 66.22 kg; cm10 Height 5 ft. 6 in. ; Pain 7/10; 15:00 BP 114 / 69; Pulse 56; Resp 15; Pulse Ox 99% ; me1 15:25 Pain 5/10; me1 15:25 Pain 5/10; me1 14:34 Body Mass Index 23.56 (66.22 kg, 167.64 cm) cm10 14:34 Pain Scale: Adult cm10 15:25 Pain Scale: Adult me1 15:25 Pain Scale: Adult me1 MDM: 14:40 Data reviewed: vital signs, nurses notes. ED course: Patient arrives today for bleeding ec2 from his wound. Examination yields skin findings as above. Will redress, does not need reclosure given very scant amount of bleeding and no dehiscence or significant opening of the wound, no evidence of cellulitis. Differential included dehiscence, cellulitis, abscess. Will also treat the patient's pain.. 14:41 Medical Screening Exam initiated ec2 09/08 14:37 Order name: Wound Care: non-adherent, gauze, tape; Complete Time: 15:21 ec2 Administered Medications: 15:16 Drug: morphine IM 4 mg IM once Route: IM; Site: right deltoid; me1 15:25 Follow up: Pain 5/10 Adult; Response: No adverse reaction; Pain is decreased me1 15:16 Drug: Ketorolac IM 30 mg IM once Route: IM; Site: left deltoid; me1 15:25 Follow up: Pain 5/10 Adult; Response: No adverse reaction; Pain is decreased me1 Disposition Summary: 09/08/24 14:51 Discharge Ordered Notes: Location: Home ec2 Condition: Stable ec2 Diagnosis - Encounter for wound evaluation ec2 Followup: ec2 - With: Private Physician - When: - Reason: Re-evaluation by your physician Discharge Instructions: - Discharge Summary Sheet ec2 - Wound Dehiscence, [id number] ec2 Forms: - Medication Reconciliation Form ec2 - Antibiotic Education ec2 - Prescription Opioid Use ec2 - Patient Portal Instructions ec2 - Leadership Thank You Letter ec2 Prescriptions: - acetaminophen-codeine 300-30 mg Oral tablet - take 1 tablet ORAL route every 12 hours; 15 tablet; Refills: 0, Product ec2 Selection Permitted Signatures: Tasha Gallegos RN RN cm10 Ashanti Larson RN RN me1 Yossi Kim MD MD ec2
[2024-09-08] MEDS ORDERED: KETOROLAC 30 MG/ML INJ ONE (15:11)
[2024-09-08] MEDS ORDERED: MORPHINE 4 MG/ML SYR ONE (15:11)
[2024-09-08 15:40] VITALS: TEMP 97.9
[2024-09-08 15:41] VITALS: BP 114/69; O2SAT 99
== END 2024-09-08 15:34 | disposition home or self-care (01) ==
LOC: ER 14:23
DX: Z48.01 Encounter for change or removal of surgical wound dressing (principal)
CPT/HCPCS: 96372; 99284

== ENCOUNTER 2024-09-09 01:26 | Emergency (ER) | payer SELFPAY ==
--- NOTE | 2024-09-09 02:09 | EDPHYS ---
Physician Documentation [facility] Name: Jeffery Jarquin Age: 24 yrs Sex: Male : 2000 Arrival Date: 09/09/2024 Time: 01:26 Bed 18 Private MD: ED Physician Edy Drake HPI: 09/09 03:55 This 24 yrs old Male presents to ER via Ambulatory with complaints of Post rt Surgical Pain. 03:55 Patient had a recent diagnosis of testicular cancer, with his right testicle removed. rt He was found that the cancer had spread into the lymph nodes of the abdomen. Reports of pain in that region. Was seen in the ED earlier, was given pain medications with improvement, subsequent sent home on Tylenol 3. Patient states that he has been oxycodone, ever, he did have mood changes associated with that he does not wish to continue that medicine. Denies other acute complaints at this time, symptoms are moderate in severity, no other aggravating alleviating factors. Historical: - Allergies: 02:02 No Known Allergies; br2 - PMHx: 02:02 testicular cancer; br2 - PSHx: 02:02 right testicle removed; br2 - Immunization history:: Adult Immunizations up to date. - Infectious Disease History:: Denies. - Social history:: Smoking status: Patient denies any tobacco usage or history of. Patient uses alcohol, but reports only rare drinking. - Family history:: not pertinent. ROS: 03:55 Cardiovascular: Negative for chest pain, palpitations, and edema, Respiratory: Negative rt for shortness of breath, cough, wheezing, and pleuritic chest pain, MS/Extremity: Negative for injury and deformity, Skin: Negative for injury, rash, and discoloration, Neuro: Negative for headache, weakness, numbness, tingling, and seizure, 03:55 Constitutional: Positive for body aches, Negative for fever, 03:55 Abdomen/GI: Positive for abdominal pain, Negative for nausea and vomiting, Exam: 03:55 Constitutional: This is a well developed, well nourished patient who is awake, alert, rt and in no acute distress. Head/Face: Normocephalic, atraumatic. Chest/axilla: Normal chest wall appearance and motion. Nontender with no deformity. No lesions are appreciated. Cardiovascular: Regular rate and rhythm with a normal S1 and S2. No gallops, murmurs, or rubs. Normal PMI, no JVD. No pulse deficits. Respiratory: Lungs have equal breath sounds bilaterally, clear to auscultation and percussion. No rales, rhonchi or wheezes noted. No increased work of breathing, no retractions or nasal flaring. Abdomen/GI: Soft, non-tender, with normal bowel sounds. No distension or tympany. No guarding or rebound. No evidence of tenderness throughout. Vital Signs: 01:54 BP 156 / 88; Pulse 77; Resp 18; Temp 97.2; Pulse Ox 100% on R/A; Weight 66.68 kg; br2 Height 5 ft. 6 in. ; Pain 8/10; 02:00 BP 134 / 70; Pulse 67; Resp 16; Pulse Ox 100% on R/A; al5 02:30 BP 116 / 54; Pulse 60; Resp 17; Pulse Ox 100% on R/A; al5 02:56 BP 133 / 67; Pulse 74; Resp 16; Pulse Ox 100% on R/A; al5 03:18 BP 123 / 72; Pulse 70; Resp 15; Pulse Ox 100% on R/A; al5 01:54 Body Mass Index 23.73 (66.68 kg, 167.64 cm) br2 01:54 Pain Scale: Adult br2 MDM: 01:56 Medical Screening Exam initiated rt 03:55 Differential Diagnosis Cancer related pain, metastatic disease. Data reviewed: vital rt signs, nurses notes. Test considered but Not performed: Other Details Patient recent labs, CT scan, do not believe that repeat imaging is indicated.. Care significantly affected by the following chronic conditions: Metastatic testicular cancer. Counseling: I had a detailed discussion with the patient and/or guardian regarding the historical points, exam findings, and any diagnostic results supporting the discharge/admit diagnosis, the need for outpatient follow up, to return to the emergency department if symptoms worsen or persist or if there are any questions or concerns that arise at home. Response to treatment: the patient's symptoms have mildly improved after treatment. Administered Medications: 02:48 Drug: morphine IM 6 mg IM once Route: IM; Site: right gluteus; al5 03:20 Follow up: Response: No adverse reaction; Pain is decreased; RASS: Alert and Calm (0) al5 02:49 Drug: Ketorolac IM 30 mg IM once Route: IM; Site: right gluteus; al5 03:20 Follow up: Response: No adverse reaction; Pain is decreased; RASS: Alert and Calm (0) al5 Disposition Summary: 09/09/24 02:08 Discharge Ordered Notes: Location: Home rt Problem: an ongoing problem rt Symptoms: are unchanged rt Condition: Stable rt Diagnosis - Pain related to cancer rt Followup: rt - With: Private Physician - When: 2 - 3 days - Reason: Discharge Instructions: - Discharge Summary Sheet rt - Managing Cancer Pain rt Forms: - Medication Reconciliation Form rt - Antibiotic Education rt - Prescription Opioid Use rt - Patient Portal Instructions rt - Leadership Thank You Letter rt Signatures: Edy Drake MD MD rt Aishwarya Dickson RN RN al5 Dominga Castellon RN RN br2
--- NOTE | 2024-09-09 02:09 | ER ---
Nurse's Notes [facility] Name: Jeffery Jarquin Age: 24 yrs Sex: Male : 2000 Arrival Date: 09/09/2024 Time: 01:26 Bed 18 Private MD: Diagnosis: Pain related to cancer Presentation: 09/09 01:54 Chief complaint: Patient states: S/P RIGHT TESTICUAR REMOVAL LAST WEDNESDAY DUE TO br2 TESTICULAR CA STAGE 3 . CA HAS METS TO LYMPH NODES........ PT C/O OF PAIN TO LOWER BACK PAIN. Coronavirus screen: Client denies travel out of the [place] in the last 14 days. Ebola Screen: Patient denies exposure to infectious person. Initial Sepsis Screen: Does the patient meet any 2 criteria? No. Patient's initial sepsis screen is negative. Does the patient have a suspected source of infection? No. Patient's initial sepsis screen is negative. Risk Assessment: Do you want to hurt yourself or someone else? Patient reports no desire to harm self or others. Onset of symptoms is unknown. 01:54 Method Of Arrival: Ambulatory br2 01:54 Acuity: IWONA 4 br2 Triage Assessment: 02:02 General: Appears uncomfortable, Behavior is calm, cooperative, appropriate for age. br2 Pain: Complains of pain in lumbar area, left low back and right low back Pain currently is 8 out of 10 on a pain scale. Historical: - Allergies: 02:02 No Known Allergies; br2 - PMHx: 02:02 testicular cancer; br2 - PSHx: 02:02 right testicle removed; br2 - Immunization history:: Adult Immunizations up to date. - Infectious Disease History:: Denies. - Social history:: Smoking status: Patient denies any tobacco usage or history of. Patient uses alcohol, but reports only rare drinking. - Family history:: not pertinent. Screenin:[address] [facility] ED Fall Risk Assessment (Adult) History of falling in the last 3 months, al5 including since admission No falls in past 3 months (0 pts) Confusion or Disorientation No (0 pts) Intoxicated or Sedated No (0 pts) Impaired Gait No (0 pts) Mobility Assist Device Used No (0 pt) Altered Elimination No (0 pt) Score/Fall Risk Level 0 - 2 = Low Risk Oriented to surroundings, Maintained a safe environment, Hourly rounding (assess needs \T\ fall precautionary measures) done. Abuse screen: Denies threats or abuse. Denies injuries from another. Nutritional screening: No deficits noted. Tuberculosis screening: No symptoms or risk factors identified. Assessment: 02:49 Reassessment: assumed care of patient at this time. patient discharge pending shot al5 time. General: Appears in no apparent distress. uncomfortable, Behavior is calm, cooperative. Pain: Complains of pain in back Pain currently is 8 out of 10 on a pain scale. Neuro: Level of Consciousness is awake, alert, obeys commands, Oriented to person, place, time, situation. Cardiovascular: Capillary refill < 3 seconds Patient's skin is warm and dry. Respiratory: Airway is patent Respiratory effort is even, unlabored, Respiratory pattern is regular, symmetrical. GI: No signs and/or symptoms were reported involving the gastrointestinal system. : No signs and/or symptoms were reported regarding the genitourinary system. EENT: No signs and/or symptoms were reported regarding the EENT system. Derm: Skin is intact, is healthy with good turgor, Skin is pink, warm \T\ dry. normal. Musculoskeletal: Reports pain in back. 03:17 Reassessment: Patient appears in no apparent distress at this time. Patient and/or al5 family updated on plan of care and expected duration. Pain level reassessed. Patient is alert, oriented x 3, equal unlabored respirations, skin warm/dry/pink. Patient states feeling better. Vital Signs: 01:54 BP 156 / 88; Pulse 77; Resp 18; Temp 97.2; Pulse Ox 100% on R/A; Weight 66.68 kg; br2 Height 5 ft. 6 in. ; Pain 8/10; 02:00 BP 134 / 70; Pulse 67; Resp 16; Pulse Ox 100% on R/A; al5 02:30 BP 116 / 54; Pulse 60; Resp 17; Pulse Ox 100% on R/A; al5 02:56 BP 133 / 67; Pulse 74; Resp 16; Pulse Ox 100% on R/A; al5 03:18 BP 123 / 72; Pulse 70; Resp 15; Pulse Ox 100% on R/A; al5 01:54 Body Mass Index 23.73 (66.68 kg, 167.64 cm) br2 01:54 Pain Scale: Adult br2 ED Course: 01:28 Patient arrived in ED. [id number] 01:28 Edy Drake MD is Attending Physician. rt 01:54 Dominga Castellon, RN is Primary Nurse. br2 02:02 Triage completed. br2 02:55 Patient has correct armband on for positive identification. Bed in low position. Call al5 light in reach. Side rails up X 1. Provided Education on: medications, discharge follow up. 02:56 No provider procedures requiring assistance completed. Patient did not have IV access al5 during this emergency room visit. Administered Medications: 02:48 Drug: morphine IM 6 mg IM once Route: IM; Site: right gluteus; al5 03:20 Follow up: Response: No adverse reaction; Pain is decreased; RASS: Alert and Calm (0) al5 02:49 Drug: Ketorolac IM 30 mg IM once Route: IM; Site: right gluteus; al5 03:20 Follow up: Response: No adverse reaction; Pain is decreased; RASS: Alert and Calm (0) al5 Medication: 02:50 VIS not applicable for this client. al5 Outcome: 02:08 Discharge ordered by MD. rt 03:20 Discharged to home ambulatory, with family, al5 03:20 Condition: good 03:20 Discharge instructions given to patient, Instructed on discharge instructions, follow up and referral plans. medication usage, Demonstrated understanding of instructions, follow-up care, medications, 03:20 Patient left the ED. al5 Signatures: Sydni Mccoy [email or web address] Edy Drake MD MD rt Aishwarya Dickson RN RN al5 Dominga Castellon RN RN br2
[2024-09-09] MEDS ORDERED: MORPHINE 4 MG/ML SYR ONE (02:39)
[2024-09-09] MEDS ORDERED: KETOROLAC 30 MG/ML INJ ONE (02:39)
[2024-09-09] MEDS ORDERED: MORPHINE 2 MG/ML SYR ONE (02:39)
[2024-09-09 03:26] VITALS: TEMP 97.2; O2SAT 100
[2024-09-09 03:30] VITALS: BP 123/72
== END 2024-09-09 03:20 | disposition home or self-care (01) ==
LOC: ER 01:26
DX: G89.3 Neoplasm related pain (acute) (chronic) (principal); Z90.79 Acquired absence of other genital organ(s)
CPT/HCPCS: 96372; 99284; J2270

== ENCOUNTER 2024-09-21 19:24 | Emergency (ER) | payer SELFPAY ==
[2024-09-21] MEDS ORDERED: MORPHINE 2 MG/ML SYR ONE (21:59)
[2024-09-21] MEDS ORDERED: KETOROLAC 30 MG/ML INJ ONE (22:00)
[2024-09-21] MEDS ORDERED: MORPHINE 4 MG/ML SYR ONE (22:00)
--- NOTE | 2024-09-21 22:35 | RAD REPORT ---
EXAM: CT PELVIS WITHOUT CONTRAST HISTORY: PAIN COMPARISON: None TECHNIQUE: Multiple contiguous axial images were obtained and a CT of the pelvis with IV contrast. Sa gittal and coronal reformats were performed. One or more of the following dose reduction techniques were used: Automated exposure control, adjustment of the mA and/or kV according to patient size, and/ or iterative reconstruction. FINDINGS: No pelvic fractures are seen. No fracture of either proximal femur is seen. No significant degenerative changes are seen. Partially visualized retroperitoneal adenopathy.. No acute intrapelvic finding. The soft tissues surrounding the pelvis are unremarkable. IMPRESSION: No acute intrapelvic finding.
--- NOTE | 2024-09-21 22:36 | RAD REPORT ---
EXAMINATION: CT LUMBAR SPINE WITHOUT CONTRAST CLINICAL INDICATION: Male, 24 years old. PAIN TECHNIQUE: Axial CT images were obtained through the lumbar spine in soft tissue and bone windows wit hout intravenous contrast. Coronal and Sagittal reformatted images were created from the data set. One or more of the following dose reduction techniques were used: Automated exposure control, adjustm ent of the mA and/ or kV according to patient size, and/or iterative reconstruction. Unless otherwise specified, incidental findings do not require dedicated imaging follow-up. COMPARISON: No prior exam. FINDINGS: For purposes of this dictation, it is assumed that there are 5 non rib-bearing lumbar type vertebrae, and the most caudal fully segmented lumbar vertebra is labeled L5. ALIGNMENT: The lumbar spine demonstrates normal alignment without scoliosis or spondylolisthesis. BONES: No significant soft tissue abnormalities. No aggressive osseous lesions. DISCS: Intervertebral disc space heights are maintained. LEVELS: Mild posterior disc bulge lower lumbar levels. No significant canal stenosis suspected. SOFT TISSUE: Bulky adenopathy partially visualized in the retroperitoneum and retrocrural space. IMPRESSION: No acute lumbar spine abnormalities.
--- NOTE | 2024-09-21 22:45 | ER ---
Nurse's Notes [facility] Name: Jeffery Jarquin Age: 24 yrs Sex: Male : 2000 Arrival Date: 09/21/2024 Time: 19:24 Bed 10 Private MD: Diagnosis: Low back pain;Pain in hip-bilateral Presentation: 09/21 19:36 Chief complaint: Patient states: he is having lower back pain due to recent cancer ap3 diagnosis. patient reports his pain is 8/10 on the pain scale. Coronavirus screen: At this time, the client does not indicate any symptoms associated with coronavirus-19. Ebola Screen: No symptoms or risks identified at this time. Initial Sepsis Screen: Does the patient meet any 2 criteria? No. Patient's initial sepsis screen is negative. Does the patient have a suspected source of infection? No. Patient's initial sepsis screen is negative. Risk Assessment: Do you want to hurt yourself or someone else? Patient reports no desire to harm self or others. Onset of symptoms is unknown. 19:36 Method Of Arrival: Ambulatory ap3 19:36 Acuity: IWONA 3 ap3 19:38 Note patient states he took 800mg motrin at 1630 today. ap3 Triage Assessment: 19:38 General: Appears in no apparent distress. Behavior is calm, cooperative, appropriate ap3 for age. Pain: Complains of pain in low back area Pain currently is 8 out of 10 on a pain scale. Neuro: Level of Consciousness is awake, alert, obeys commands, Oriented to person, place, time, situation, Appropriate for age. Cardiovascular: Patient's skin is warm and dry. Respiratory: Airway is patent Respiratory effort is even, unlabored, Respiratory pattern is regular, symmetrical. Historical: - Allergies: 19:37 No Known Allergies; ap3 - PMHx: 19:37 testicular cancer; ap3 - PSHx: 19:37 right testicle removed; ap3 - Immunization history:: Client reports having NOT received the Covid vaccine. Flu vaccine is not up to date. - Infectious Disease History:: Denies. - Social history:: Smoking status: Patient denies any tobacco usage or history of. Screenin:40 [facility] ED Fall Risk Assessment (Adult) History of falling in the last 3 months, ap3 including since admission No falls in past 3 months (0 pts) Confusion or Disorientation No (0 pts) Intoxicated or Sedated No (0 pts) Impaired Gait No (0 pts) Mobility Assist Device Used No (0 pt) Altered Elimination No (0 pt) Score/Fall Risk Level 0 - 2 = Low Risk Oriented to surroundings, Maintained a safe environment, Educated pt \T\ family on fall prevention, incl call for assistance when getting out of bed, Assessed \T\ reinforced patient's understanding of fall precautions, Hourly rounding (assess needs \T\ fall precautionary measures) done, Used ambulatory aids as needed (educated on \T\ assisted with). Abuse screen: Denies threats or abuse. Nutritional screening: No deficits noted. Tuberculosis screening: No symptoms or risk factors identified. Assessment: 21:17 Reassessment: Patient and/or family updated on plan of care and expected duration. Pain br2 level reassessed. Patient is alert, oriented x 3, equal unlabored respirations, skin warm/dry/pink. General: Appears uncomfortable, Behavior is calm, cooperative. Pain: Complains of pain in coccyx, left lower back and right lower back Pain currently is 8 out of 10 on a pain scale. Vital Signs: 19:36 BP 144 / 86; Pulse 84; Resp 17; Temp 98.8; Pulse Ox 96% ; Weight 65.77 kg; Height 5 ft. ap3 6 in. ; Pain 8/10; 21:32 BP 133 / 64; Pulse 87; Resp 18 S; Temp 97.2(O); Pulse Ox 100% on R/A; br2 22:45 BP 130 / 60; Pulse 84; Resp 18 S; Temp 97.1(O); Pulse Ox 100% on R/A; Pain 2/10; br2 19:36 Body Mass Index 23.40 (65.77 kg, 167.64 cm) ap3 19:36 Pain Scale: Adult ap3 22:45 Pain Scale: Adult br2 ED Course: 19:30 Patient arrived in ED. gm2 19:37 Triage completed. ap3 19:40 Baltazar Bustamante PA is PHCP. cp 19:40 Edy Drake MD is Attending Physician. cp 19:40 Arm band placed on right wrist. ap3 20:20 Attending Physician role handed off by Edy Drake MD cp 20:20 Lew Leonard MD is Attending Physician. cp 21:16 Dominga Castellon, RN is Primary Nurse. br2 22:26 CT Lumbar Spine Wo Con In Process Unspecified. EDMS 22:26 CT Pelvis wo Cont In Process Unspecified. EDMS 23:03 No provider procedures requiring assistance completed. Patient did not have IV access br2 during this emergency room visit. Administered Medications: 22:19 Drug: morphine IM 6 mg IM once Route: IM; Site: left gluteus; br2 23:00 Follow up: Response: Pain is decreased br2 22:20 Drug: Ketorolac IM 30 mg IM once Route: IM; Site: left gluteus; br2 23:00 Follow up: Response: Pain is decreased br2 Medication: 22:45 VIS not applicable for this client. br2 Outcome: 22:44 Discharge ordered by MD. cp 23:03 Discharged to home ambulatory, br2 23:03 Discharged to home ambulatory, 23:03 Condition: good 23:03 Discharge instructions given to patient, Instructed on discharge instructions, follow up and referral plans. Demonstrated understanding of instructions, follow-up care, medications, Prescriptions given X 2, 23:18 Patient left the ED. br2 Signatures: Dispatcher [employer] EDWV Baltazar Bustamante PA PA cp Aishwarya Luz, RN RN [id number] Kaylie Oglesby 2 Dominga Castellon, RN RN br2
--- NOTE | 2024-09-21 22:45 | EDPHYS ---
Physician Documentation [facility] Name: Jeffery Jarquin Age: 24 yrs Sex: Male : 2000 Arrival Date: 09/21/2024 Time: 19:24 Bed 10 Private MD: ED Physician Lew Leonard HPI: 09/21 20:00 This 24 yrs old Male presents to ER via Ambulatory with complaints of Low Back cp Pain, Hip Pain, cancer patient. 20:00 The patient presents with pain that is acute, with no known mechanism of injury. cp 20:00 The symptoms are located in the low back, bilateral hip and pelvis. The pain does not cp radiate. Associated signs and symptoms: Pertinent positives: recent diagnosis of metastatic testicular cancer with removal of right testicle earlier this month at [facility], Pertinent negatives: abdominal pain, chest pain, constipation, fever, hematuria, incontinence, numbness. Severity of symptoms: in the emergency department the symptoms are unchanged, despite home interventions. Historical: - Allergies: 19:37 No Known Allergies; ap3 - PMHx: 19:37 testicular cancer; ap3 - PSHx: 19:37 right testicle removed; ap3 - Immunization history:: Client reports having NOT received the Covid vaccine. Flu vaccine is not up to date. - Infectious Disease History:: Denies. - Social history:: Smoking status: Patient denies any tobacco usage or history of. ROS: 20:05 Eyes: Negative for injury, pain, redness, and discharge, cp 20:05 Constitutional: Negative for body aches, chills, fever, poor PO intake, 20:05 Respiratory: Negative for cough, shortness of breath, wheezing, 20:05 Abdomen/GI: Negative for abdominal pain, nausea, vomiting, and diarrhea, 20:05 Back: Positive for pain at rest, pain with movement, 20:05 : Positive for pelvic pain, Negative for urinary symptoms, difficulty urinating, bladder incontinence, testicular pain 20:05 Neuro: Negative for altered mental status, dizziness, headache, weakness, 20:05 All other systems are negative, Exam: 20:10 Constitutional: The patient appears in no acute distress, alert, awake, non-toxic, well cp developed, well nourished, 20:10 Head/Face: Normocephalic, atraumatic. cp 20:10 Eyes: Periorbital structures: appear normal, Conjunctiva: normal, no exudate, no injection, Sclera: no appreciated abnormality, Lids and lashes: appear normal, bilaterally, 20:10 ENT: External ear(s): are unremarkable, Nose: is normal, Mouth: Lips: moist, Oral mucosa: moist, Posterior pharynx: Airway: no evidence of obstruction, patent, 20:10 Chest/axilla: Inspection: normal, 20:10 Cardiovascular: Rate: normal, Rhythm: regular, 20:10 Respiratory: the patient does not display signs of respiratory distress, Respirations: normal, no use of accessory muscles, no retractions, Breath sounds: are clear throughout, no decreased breath sounds, no stridor, no wheezing, 20:10 Abdomen/GI: Inspection: abdomen appears normal, Palpation: abdomen is soft and non-tender, in all quadrants, 20:10 Back: pain, that is moderate, of the low back area, ROM is painful, with all movement, 20:10 Neuro: Orientation: to person, place \T\ time. Mentation: is normal, Motor: moves all fours, strength is normal, Sensation: is normal, Gait: is steady, at a normal pace, without difficulty, Vital Signs: 19:36 BP 144 / 86; Pulse 84; Resp 17; Temp 98.8; Pulse Ox 96% ; Weight 65.77 kg; Height 5 ft. ap3 6 in. ; Pain 8/10; 21:32 BP 133 / 64; Pulse 87; Resp 18 S; Temp 97.2(O); Pulse Ox 100% on R/A; br2 22:45 BP 130 / 60; Pulse 84; Resp 18 S; Temp 97.1(O); Pulse Ox 100% on R/A; Pain 2/10; br2 19:36 Body Mass Index 23.40 (65.77 kg, 167.64 cm) ap3 19:36 Pain Scale: Adult ap3 22:45 Pain Scale: Adult br2 MDM: 19:46 Medical Screening Exam initiated cp 22:00 Differential diagnosis: fracture, sciatica, UTI, metastatic testicular cancer. 22:44 Data reviewed: vital signs, nurses notes, radiologic studies, CT scan. 22:44 I considered the following discharge prescriptions or medication management in the cp emergency department Medications were administered in the Emergency Department. See MAR. 22:44 Counseling: I had a detailed discussion with the patient and/or guardian regarding the cp historical points, exam findings, and any diagnostic results supporting the discharge/admit diagnosis, radiology results, the need for outpatient follow up, a family practitioner, a painter rough, to return to the emergency department if symptoms worsen or persist or if there are any questions or concerns that arise at home. Response to treatment: the patient's symptoms have mildly improved after treatment, and as a result, I will discharge patient. 09/21 21:52 Order name: CT Lumbar Spine Wo Con; Complete Time: 22:39 cp 09/21 22:40 Interpretation: Report reviewed. cp 09/21 21:52 Order name: CT Pelvis wo Cont; Complete Time: 22:39 cp 09/21 22:40 Interpretation: Report reviewed. cp Administered Medications: 22:19 Drug: morphine IM 6 mg IM once Route: IM; Site: left gluteus; br2 23:00 Follow up: Response: Pain is decreased br2 22:20 Drug: Ketorolac IM 30 mg IM once Route: IM; Site: left gluteus; br2 23:00 Follow up: Response: Pain is decreased br2 Disposition: 09/22 00:21 Co-signature as Attending Physician, Lew Leonard MD I agree with the assessment sp4 and plan of care. I reviewed the patient's care provided by Advanced Practice Provider \T\ agree w/ the diagnosis \T\ care plan. I personally saw the pt \T\ performed a substantive portion of the visit, incldng all aspects of the (History/Exam/Medical Decision Making). Disposition Summary: 09/21/24 22:44 Discharge Ordered Notes: Location: Home cp Problem: an ongoing problem cp Symptoms: have improved cp Condition: Stable cp Diagnosis - Low back pain cp - Pain in hip - bilateral cp Followup: cp - With: Private Physician - When: 2 - 3 days - Reason: Recheck today's complaints Discharge Instructions: - Discharge Summary Sheet cp - Acute Back Pain, Adult cp - Musculoskeletal Pain cp - Back Exercises cp Forms: - Medication Reconciliation Form cp - Antibiotic Education cp - Prescription Opioid Use cp - Patient Portal Instructions cp - Leadership Thank You Letter cp Prescriptions: - Tylenol #3 - take 2 tablet ORAL route every 8-12 hours; 16 tablet; Refills: 0, Product cp Selection Permitted - Celebrex 100 mg Oral Capsule - take 1 tablet ORAL route once daily As needed take with food; 20 capsule; cp Refills: 0, Product Selection Permitted Signatures: Dispatcher [employer] EDCT Baltazar Bustamante PA PA cp Aishwarya Luz RN RN ap3 Lew Leonard MD MD sp4 Dominga Castellon RN RN br2 Corrections: (The following items were deleted from the chart) 09/21 21:52 21:52 Pelvis Wo [id number] ordered. EDCT EDMS 09/22 22:44 22:42 : Positive for pelvic pain, Negative for urinary symptoms, difficulty cp urinating, bladder incontinence, testicular pain cp 22:44 22:42 Constitutional: Negative for body aches, chills, fever, poor PO intake, cp cp 22:44 22:42 Respiratory: Negative for cough, shortness of breath, wheezing, cp cp 22:44 22:42 Back: Positive for pain at rest, pain with movement, cp cp 22:44 22:42 Abdomen/GI: Negative for abdominal pain, nausea, vomiting, and diarrhea, cp cp 22:44 22:42 Eyes: Negative for injury, pain, redness, and discharge, cp cp 22:44 22:42 Neuro: Negative for altered mental status, dizziness, headache, weakness, cp cp 22:44 22:42 All other systems are negative, cp cp 23:00 09/21 20:00 Associated signs and symptoms: Pertinent positives: recent diagnosis of cp metastatic testicular cancer with removal of testicle earlier this month at [facility], Pertinent negatives: abdominal pain, chest pain, constipation, fever, hematuria, incontinence, numbness, cp
[2024-09-22 20:25] VITALS: O2SAT 100
[2024-09-22 20:27] VITALS: BP 130/60; TEMP 97.1
== END 2024-09-21 23:18 | disposition home or self-care (01) ==
LOC: ER 19:24
DX: M54.50 Low back pain, unspecified (principal); M25.552 Pain in left hip; M25.551 Pain in right hip; Z85.47 Personal history of malignant neoplasm of testis
CPT/HCPCS: 72131; 72192; 96372; 99284; J2270

== ENCOUNTER 2024-09-22 22:32 | Emergency (ER) | payer SELFPAY ==
[2024-09-22] MEDS ORDERED: KETOROLAC 30 MG/ML INJ ONE (23:59)
[2024-09-22] MEDS ORDERED: MORPHINE 2 MG/ML SYR ONE (23:59)
[2024-09-22] MEDS ORDERED: MORPHINE 4 MG/ML SYR ONE (23:59)
--- NOTE | 2024-09-23 01:30 | RAD REPORT ---
EXAM: US Scrotum CLINICAL HISTORY: PAIN TECHNIQUE: Real-time ultrasound of the scrotum with color Doppler and image documentation. COMPARISON: No relevant prior studies available. FINDINGS: Right testicle: The right testis is surgically absent. Left testicle: The left testis measures 3.8 x 2.3 x 3 cm. Homogeneous echotexture. No torsion. Epididymides: Unremarkable. Scrotum: Unremarkable. IMPRESSION: Normal left testicular flow without sonographic evidence for torsion. Electronically signed by: Zackery Granda MD 09/23/2024 01:27 AM [facility] Due to temporary technical issues with the PACS/CasterStats scribe reporting system, reports are being sign ed by the in-house radiologist without review as a courtesy to ensure prompt reporting the interpreting rad iologist is fully responsible for the content of the report. Transcribed Date/Time: 09/23/2024 1:30 AM
--- NOTE | 2024-09-23 01:34 | ER ---
Nurse's Notes [facility] Name: Jeffery Jarquin Age: 24 yrs Sex: Male : 2000 Arrival Date: 09/22/2024 Time: 22:32 Bed 10 Private MD: Diagnosis: Testicular pain;Pain related to cancer Presentation: 09/22 23:09 Chief complaint: Patient states: LEFT TESTICAL, HIP AND LOWER AB PAIN.. Coronavirus ap3 screen: Client denies travel out of the [place] in the last 14 days. Ebola Screen: Patient denies exposure to infectious person. Initial Sepsis Screen: Does the patient meet any 2 criteria? No. Patient's initial sepsis screen is negative. Does the patient have a suspected source of infection? No. Patient's initial sepsis screen is negative. Risk Assessment: Do you want to hurt yourself or someone else? Patient reports no desire to harm self or others. Onset of symptoms. 23:09 Method Of Arrival: Ambulatory ap3 23:09 Acuity: IWONA 3 ap3 Triage Assessment: 23:11 General: Appears uncomfortable, Behavior is calm, cooperative. Pain: Complains of pain ap3 in groin, left inguinal area and left hip Pain currently is 8 out of 10 on a pain scale. GI: Abdomen is flat. Historical: - PMHx: 23:11 testicular cancer; ap3 - PSHx: 23:11 right testicle removed; ap3 - Immunization history:: Adult Immunizations up to date, Adult Immunizations not up to date. - Infectious Disease History:: Denies. - Social history:: Smoking status: Patient denies any tobacco usage or history of. Patient uses alcohol, occasionally. - Family history:: not pertinent. Screenin:09 [facility] ED Fall Risk Assessment (Adult) History of falling in the last 3 months, br2 including since admission No falls in past 3 months (0 pts) Confusion or Disorientation No (0 pts) Intoxicated or Sedated No (0 pts) Impaired Gait No (0 pts) Mobility Assist Device Used No (0 pt) Altered Elimination No (0 pt) Score/Fall Risk Level 0 - 2 = Low Risk Oriented to surroundings. Abuse screen: Denies threats or abuse. Denies injuries from another. Nutritional screening: No deficits noted. Tuberculosis screening: No symptoms or risk factors identified. Assessment: 09/23 01:15 Reassessment: Patient and/or family updated on plan of care and expected duration. Pain br2 level reassessed. Patient is alert, oriented x 3, equal unlabored respirations, skin warm/dry/pink. Patient states feeling better. Patient states symptoms have improved. Vital Signs: 09/22 23:09 BP 140 / 80; Pulse 119; Resp 18; Temp 97.2; Pulse Ox 95% on R/A; Weight 65.77 kg; ap3 Height 5 ft. 6 in. ; Pain 8/10; 09/23 01:45 BP 129 / 69; Pulse 94; Resp 18 S; Temp 97.2; Pulse Ox 98% on R/A; Pain 3/10; br2 09/22 23:09 Body Mass Index 23.40 (65.77 kg, 167.64 cm) ap3 09/22 23:09 Pain Scale: Adult ap3 09/23 01:45 Pain Scale: Adult br2 ED Course: 09/22 22:36 Patient arrived in ED. gm2 22:41 Edy Drake MD is Attending Physician. rt 23:09 Patient has correct armband on for positive identification. Call light in reach. Side br2 rails up X 1. Provided Education on: PLAN OF CARE. 23:10 Triage completed. ap3 23:43 Ashanti Larson, RN is Primary Nurse. me1 23:55 Scrotum Testicles US In Process Unspecified. EDMS 09/23 01:58 No provider procedures requiring assistance completed. Patient did not have IV access br2 during this emergency room visit. Administered Medications: 09/22 23:50 Drug: Ketorolac IM 30 mg IM once Route: IM; Site: left gluteus; br2 09/23 00:30 Follow up: Response: No adverse reaction br2 09/22 23:50 Drug: morphine IM 6 mg IM once Route: IM; Site: left gluteus; br2 09/23 00:30 Follow up: Response: No adverse reaction br2 Outcome: 01:33 Discharge ordered by . rt 01:58 Discharged to home ambulatory, br2 01:58 Condition: good 01:58 Discharge instructions given to patient, Instructed on discharge instructions, follow up and referral plans. Demonstrated understanding of instructions, follow-up care, 01:58 Patient left the ED. br2 Signatures: Dispatcher [employer] Aishwarya Torrez RN RN ap3 Edy Drake MD MD rt Ashanti Larson RN RN me1 Kaylie Oglesby 2 Dominga Castellon RN RN br2 Corrections: (The following items were deleted from the chart) 02:32 02:31 Patient left the ED. br2 br2
--- NOTE | 2024-09-23 01:34 | EDPHYS ---
Physician Documentation [facility] Name: Jeffery Jarquin Age: 24 yrs Sex: Male : 2000 Arrival Date: 09/22/2024 Time: 22:32 Bed 10 Private MD: ED Physician Edy Drake HPI: 09/23 01:37 This 24 yrs old Male presents to ER via Ambulatory with complaints of rt Testicular Pain, Low Back Pain, Abdominal Pain. 01:37 Patient with history of testicular cancer presents to the ED with a left-sided rt testicular pain rating to the pelvis starting today. Patient was seen in the ED about a day ago for the same had negative CT scans of the lumbar spine, pelvis. Since then he been taking his medicines, initially got good relief with the Celebrex, states the pain is now worsening. Denies other acute complaints at this time, symptoms are moderate in severity, aching in nature, nonradiating, no other aggravating or alleviating factors.. Historical: - PMHx: 09/22 23:11 testicular cancer; ap3 - PSHx: 23:11 right testicle removed; ap3 - Immunization history:: Adult Immunizations up to date, Adult Immunizations not up to date. - Infectious Disease History:: Denies. - Social history:: Smoking status: Patient denies any tobacco usage or history of. Patient uses alcohol, occasionally. - Family history:: not pertinent. ROS: 09/23 01:37 Constitutional: Negative for fever, chills, and weight loss, Cardiovascular: Negative rt for chest pain, palpitations, and edema, Respiratory: Negative for shortness of breath, cough, wheezing, and pleuritic chest pain, MS/Extremity: Negative for injury and deformity, Skin: Negative for injury, rash, and discoloration, Neuro: Negative for headache, weakness, numbness, tingling, and seizure, Abdomen/GI: Positive for abdominal pain, Negative for vomiting, : Positive for testicular pain Negative for injury or acute deformity, Exam: 01:37 Constitutional: This is a well developed, well nourished patient who is awake, alert, rt and in no acute distress. Head/Face: Normocephalic, atraumatic. Chest/axilla: Normal chest wall appearance and motion. Nontender with no deformity. No lesions are appreciated. Cardiovascular: Regular rate and rhythm with a normal S1 and S2. No gallops, murmurs, or rubs. Normal PMI, no JVD. No pulse deficits. Respiratory: Lungs have equal breath sounds bilaterally, clear to auscultation and percussion. No rales, rhonchi or wheezes noted. No increased work of breathing, no retractions or nasal flaring. Abdomen/GI: Soft, non-tender, with normal bowel sounds. No distension or tympany. No guarding or rebound. No evidence of tenderness throughout. Skin: Warm, dry with normal turgor. Normal color with no rashes, no lesions, and no evidence of cellulitis. MS/ Extremity: Pulses equal, no cyanosis. Neurovascular intact. Full, normal range of motion. Neuro: Awake and alert, GCS 15, oriented to person, place, time, and situation. Cranial nerves II-XII grossly intact. Motor strength 5/5 in all extremities. Sensory grossly intact. Cerebellar exam normal. Normal gait. Vital Signs: 09/22 23:09 BP 140 / 80; Pulse 119; Resp 18; Temp 97.2; Pulse Ox 95% on R/A; Weight 65.77 kg; ap3 Height 5 ft. 6 in. ; Pain 8/10; 09/23 01:45 BP 129 / 69; Pulse 94; Resp 18 S; Temp 97.2; Pulse Ox 98% on R/A; Pain 3/10; br2 09/22 23:09 Body Mass Index 23.40 (65.77 kg, 167.64 cm) ap3 09/22 23:09 Pain Scale: Adult ap3 09/23 01:45 Pain Scale: Adult br2 MDM: 09/22 23:11 Medical Screening Exam initiated rt 09/23 01:37 Differential diagnosis: Testicular torsion, cancer related pain, tumor. Data reviewed: rt vital signs, nurses notes, radiologic studies. Care significantly affected by the following chronic conditions: Testicular cancer. Counseling: I had a detailed discussion with the patient and/or guardian regarding the historical points, exam findings, and any diagnostic results supporting the discharge/admit diagnosis, radiology results, the need for outpatient follow up, to return to the emergency department if symptoms worsen or persist or if there are any questions or concerns that arise at home. Response to treatment: the patient's symptoms have markedly improved after treatment. 09/22 23:21 Order name: Scrotum Testicles US rt Administered Medications: 09/22 23:50 Drug: Ketorolac IM 30 mg IM once Route: IM; Site: left gluteus; br2 09/23 00:30 Follow up: Response: No adverse reaction br2 09/22 23:50 Drug: morphine IM 6 mg IM once Route: IM; Site: left gluteus; br2 09/23 00:30 Follow up: Response: No adverse reaction br2 Disposition Summary: 09/23/24 01:33 Discharge Ordered Notes: Location: Home rt Problem: an ongoing problem rt Symptoms: have improved rt Condition: Stable rt Diagnosis - Testicular pain rt - Pain related to cancer rt Followup: rt - With: Private Physician - When: 2 - 3 days - Reason: Discharge Instructions: - Discharge Summary Sheet rt - Testicular Cancer rt Forms: - Medication Reconciliation Form rt - Antibiotic Education rt - Prescription Opioid Use rt - Patient Portal Instructions rt - Leadership Thank You Letter rt Signatures: Dispatcher [employer] Aishwarya Torrez RN RN ap3 Edy Drake MD MD rt Dominga Castellon RN RN br2 Corrections: (The following items were deleted from the chart) 09/22 23: 23:21 Scrotum Testicles+[email or web address] ordered. MIGUELCA LIZETTE
[2024-09-23 13:23] VITALS: TEMP 97.2
[2024-09-23 13:24] VITALS: BP 129/69; O2SAT 98
== END 2024-09-23 02:31 | disposition home or self-care (01) ==
LOC: ER 22:32
DX: G89.3 Neoplasm related pain (acute) (chronic) (principal); C62.90 Malignant neoplasm of unspecified testis, unspecified whether descended or undescended
CPT/HCPCS: 76870; 96372; 99284; J2270